=== PATIENT | male | born 1960 ===

== ENCOUNTER → 2017-09-04 | Outpatient (CLI) | payer OTHER | END | disposition home or self-care (01) | LOC: PCVCIMAG 07:46 | DX: K76.0 Fatty (change of) liver, not elsewhere classified (principal); R09.89 Other specified symptoms and signs involving the circulatory and respiratory systems; R10.9 Unspecified abdominal pain | CPT/HCPCS: 76700; 93880; 93978 ==

== ENCOUNTER → 2017-11-24 | Outpatient (CLI) | payer OTHER ==
--- NOTE | 2017-11-24 12:51 | PCVCIMAG ---
APPROVED REPORT Study performed: 11/24/2017 11:45:52 Exam: Stress Echocardiogram Indication: Hyperlipidemia, Hypertension, Family hx CAD Patient Location: Echo lab Stress Nurse: Kimmy Lobo RN Status: routine Ht: 5 ft 10 in HR: 78 bpm BP: 104/60 mmHg Medical History Medical History: Hyperlipidemia, HTN, Tobacco, Family hx of CAD, Sleep Apnea Procedure The patient underwent an Exercise Stress Test using the Supa Protocol. Blood pressure, heart rate, and EKG were monitored. An Echocardiogram was performed by actuarial technician in four stages in quad fashion. At peak stress, four selected images were obtained and placed side by side with resting images for comparison. Stress Test Details Stress Test: Exercise stress testing was performed using a Supa protocol. HR Resting HR: 78 bpmMax Heart Rate (APMHR): 164 bpm Max HR Achieved: 162 bpmTarget HR (85% APMHR): 139 bpm % of APMHR: 98 HR response to stress: Normal HR response to stress BP Resting BP: 104/60 mmHg Max BP: 144/60 mmHg ECG Resting ECG: Sinus Rhythm Stress ECG: Sinus Rhythm Recovery ECG: Sinus Rhythm Clinical Reason for Termination: Maximal effort Exercise duration: 12 min 16 sec Highest Stage Achieved: Stage 4: 4.2 mph at 16% grade. Exercise capacity: 14.30 METs Overall Exercise Capacity for Age: Good Pre-Stress Echo The resting Echocardiogram showed normal left ventricular contractility with an estimated Ejection Fraction of about 55-60%. Normal wall motion in all segments on baseline images. Post-Stress Echo The stress Echocardiogram showed normal left ventricular contractility with an estimated Ejection Fraction of about 60-65%. Normal augmentation of wall motion in all segments on post stress images. Clinical No clinical or ECG evidence for ischemia. Conclusion Clinical Response: Non-ischemic Exercise Capacity: Superior Stress ECG Response: Non-ischemic Stress Echo Images: Non-ischemic The left ventricle is normal in size and wall thickness in both the rest and stress images. Other Information Study Quality: Adequate <Conclusion> The left ventricle is normal in size and wall thickness in both the rest and stress images.
== END | disposition home or self-care (01) ==
LOC: PCVCIMAG 13:26
PROVIDERS: ATTEND Internal Medicine Cardiovascular Disease
DX: R07.9 Chest pain, unspecified (principal); R06.09 Other forms of dyspnea; Z82.49 Family history of ischemic heart disease and other diseases of the circulatory system
CPT/HCPCS: 93325; 93351